=== PATIENT | female | born 2000 | race Two or more races ===

== ENCOUNTER 2023-07-29 09:11 | Emergency (ER) | payer MEDICAID, OTHER ==
[~2023-07-29] VITALS: Ht 170.2 cm; Wt 107.5 kg
[2023-07-29 10:56] VITALS: BP 100/74; PULSE 98; RESP 16; TEMP 97.5; O2SAT 98
[2023-07-29] MEDS ORDERED: CEPH500C PO (11:13)
[2023-07-29] MEDS ORDERED: BACDST PO (11:13)
[2023-07-29] MEDS ORDERED: IBUP1TAB5 PO (11:13)
[2023-07-29] MEDS ORDERED: KETOROLAC TROMETH 30 MG/ML 1ML VIAL IM ONE (11:15)
== END 2023-07-29 11:39 | disposition home or self-care (01) ==
LOC: ER 09:11
DX: L02.415 Cutaneous abscess of right lower limb (principal); Z79.1 Long term (current) use of non-steroidal anti-inflammatories (NSAID); Z79.899 Other long term (current) drug therapy; Z88.0 Allergy status to penicillin; Z88.1 Allergy status to other antibiotic agents
CPT/HCPCS: 96372; 99283; J1885

== ENCOUNTER 2023-07-30 09:52 | Emergency (ER) | payer MEDICAID ==
[~2023-07-30] VITALS: Ht 170.2 cm; Wt 108.4 kg
[~2023-07-30 09:52] MED LIST: BACDST PO; CEPH500C PO; IBUP1TAB5 PO
[2023-07-30 11:05] VITALS: BP 114/64; PULSE 96; RESP 18; TEMP 97.4; O2SAT 98
[2023-07-30] MEDS ORDERED: LIDOCAINE 1% HCL (LOCAL ANESTH.) INJ 20ML MDV ID ONE (11:15)
[2023-07-30] MEDS ORDERED: cefTRIAXone SOD 1,000 MG VL IM ONE (12:30)
[2023-07-30] MEDS ORDERED: IBUPROFEN 800 MG TAB PO ONE (12:30)
[2023-07-30] MEDS ORDERED: ACETAMINOPHEN 500 MG TAB PO ONE (12:30)
== END 2023-07-30 12:55 | disposition home or self-care (01) ==
LOC: ER 09:52
DX: L02.416 Cutaneous abscess of left lower limb (principal); Z79.1 Long term (current) use of non-steroidal anti-inflammatories (NSAID); Z79.899 Other long term (current) drug therapy; Z88.0 Allergy status to penicillin; Z88.1 Allergy status to other antibiotic agents; Z88.8 Allergy status to other drugs, medicaments and biological substances
CPT/HCPCS: 10060; 87205; 99283; J2001